=== PATIENT | female | born 1960 | race Asian ===

== ENCOUNTER 2018-10-24 15:55 | Inpatient (IN) | payer MEDICAID ==
[~2018-10-24] VITALS: Ht 156.2 cm; Wt 68.9 kg
[2018-10-24] MEDS ORDERED: SODIUM CHLORIDE 0.9% 1L BAG IV* STA (16:53)
[2018-10-24] MEDS ORDERED: ALBUTEROL 0.5% (NEB) 2.5 MG/0.5 ML AMP INH STA (16:55)
--- NOTE | 2018-10-24 16:56 | ERD ---
ER Documentation Chief Complaint Chief Complaint SOB x 3 days worse today - has R breast CA on chemotherapy HPI 58-year-old woman complains of 3 days of intermittent cough and fever, generalized weakness this morning. She has a history of right metastatic breast carcinoma status post right partial mastectomy and chemotherapy. She denies chest pain, no calf or leg swelling, no abdominal pain, no vomiting or diarrhea. ROS All systems reviewed and are negative except as per history of present illness. Allergies Allergies: Coded Allergies: No Known Allergy (Unverified , 10/24/18) PMhx/Soc Metastatic right breast carcinoma status post chemo and radiation therapy diagnosed in 2010, diabetes mellitus FmHx Family History: No diabetes Physical Exam Vitals Vital Signs Date Temp Pulse Resp B/P (MAP) Pulse Ox O2 O2 Flow FiO2 Time Delivery Rate 10/24/18 97.8 126 18 107/81 100 Nasal 2.0 18:33 (90) Cannula 10/24/18 3.0 17:48 10/24/18 120 30 98 Nasal 3.0 17:16 Cannula 10/24/18 99.8 126 21 165/97 96 15:59 (119) Physical Exam GENERAL: Well-developed, dyspneic, febrile HEENT: Moist mucous membranes, pink conjunctiva, no cervical spine tenderness or step-off deformities, no goiter, no jaundice or icterus, extraocular movements intact without pain. No submandibular induration, and no pharyngeal erythema NEURO: Alert and oriented 3, cranial nerves II through XII intact bilaterally, pupils equal round reactive to light, no focal deficits or facial asymmetry, sensation intact distally Strength 5/5 in upper and lower extremities bilaterally CARDIAC: Tachycardic and regular, no murmurs rubs or gallops LUNGS: Poor breath sounds bilaterally, crackles at the bases ABDOMEN: Soft nontender, no guarding, no rigidity, no rebound, no psoas sign no obturator sign. SKIN: Warm and dry to touch, no abrasions, contusions, or hematomas, no lacerations, no ecchymosis, no target lesions, and without ulcers EXTREMITIES: No clubbing cyanosis or edema, calves are bilaterally symmetrical, no Homans sign, no popliteal cord sign. Distal pulses equal and bilateral PSYCH: Normal affect without agitation or irritability Result Diagram: 10/24/18 1600 10/24/18 1600 Results 24 hrs Laboratory Tests Test 10/24/18 16:00 10/24/18 16:15 10/24/18 16:53 10/24/18 17:19 White Blood 6.6 10^3/ul Count Red Blood Count 3.21 10^6/ul Hemoglobin 12.0 g/dl Hematocrit 34.3 % Mean 106.9 fl Corpuscular Volume Mean 37.4 pg Corpuscular Hemoglobin Mean 35.0 g/dl Corpuscular Hemoglobin Conc ent Red Cell 15.1 % Distribution Width Platelet Count 48 10^3/UL Mean Platelet 11.7 fl Volume Immature 0.500 % Granulocytes % Neutrophils % % Lymphocytes % % Monocytes % % Eosinophils % % Basophils % % Nucleated Red 1.8 /100WBC Blood Cells % Immature 0.030 10^3/ul Granulocytes # Neutrophils # 10^3/ul Lymphocytes # 10^3/ul Monocytes # 10^3/ul Eosinophils # 10^3/ul Basophils # 10^3/ul Nucleated Red 10^3/ul Blood Cells # Pathologist YES Review (Hematol ogy) Prothrombin 15.3 Sec Time Prothrombin 1.2 Time Ratio INR 1.20 International Normalized Rati o Activated 75.4 Sec Partial Thrombo plast Time Sodium Level 138 mmol/L Potassium Level 4.0 mmol/L Chloride Level 103 mmol/L Carbon Dioxide 23 mmol/L Level Anion Gap 12 Blood Urea 21 mg/dl Nitrogen Creatinine 0.58 mg/dl Est Glomerular > 60 mL/min Filtrat Rate mL/min Glucose Level 120 mg/dl Calcium Level 8.7 mg/dl Total Bilirubin 1.9 mg/dl Direct 0.70 mg/dl Bilirubin Indirect 1.2 mg/dl Bilirubin Aspartate Amino 449 IU/L Transf (AST/SGO T) Alanine 183 IU/L Aminotransferas e (ALT/SGPT) Alkaline 467 IU/L Phosphatase Troponin I < 0.012 ng/ml C-Reactive 6.9 mg/dl Protein Total Protein 6.7 g/dl Albumin 2.8 g/dl Globulin 3.90 g/dl Albumin/Globuli 0.71 n Ratio Lipase 209 U/L Lactic Acid 3.5 mmol/L Level Blood Gas Blood arterial Specimen Source Arterial Blood 10/24/2018 5:22 Date Drawn :39 PM Arterial Blood 7.482 pH (Temp corrected ) Arterial Blood 29.4 mmhg pCO2 (Temp correct) Arterial Blood 155.6 mmHG pO2 (Temp corrected ) Arterial Blood 21.5 mmol/L HCO3 Arterial Blood -0.9 mmol/L Base Excess Arterial Blood 98.9 mmHG Oxygen Saturati on Jake Test ACCEPTAB Arterial Blood Left Radial Gas Puncture Site Arterial 0.9 % Blood Carboxyhe moglobin Arterial Blood 0.2 % Methemoglobin Blood Gas A-a 23.8 mmHg O2 Differential Oxyhemoglobin 97.8 % Percent Blood Gas 37.0 C Temperature Blood Gas 30 Actual Respiration Rat e Blood Gas NASAL CANNULA Modality FiO2 30.0 % Blood Gas OTF RT Notified Whom Blood Gas 10/24/2018 5:40 Notified Time :47 PM POC Venous 2.7 mmol/L Lactate Current Medications Medications Dose Sig/Rosibel Start Time Status Last (Trade) Ordered Route PRN Stop Time Admin Dose Reason Admin Sodium 2,000 ml BOLUS OVER 2 10/24/18 DC 10/24/18 Chloride HOURS STAT 16:53 17:35 (NS) IV* 10/24/18 17:02 Ibuprofen 600 mg ONCE ONCE 10/24/18 DC 10/24/18 (Motrin) PO 17:00 17:40 10/24/18 17:02 Ceftriaxone 50 ml @ ONCE ONCE 10/24/18 DC 10/24/18 Sodium 100 mls/hr IVPB 17:00 17:35 10/24/18 17:29 Albuterol 10 mg ONCE STAT 10/24/18 DC 10/24/18 (Proventil INH 16:55 17:16 0.5% (Neb)) 10/24/18 17:02 Procedures/MDM IV line was established patient was placed on video arcade manager rhythm strip revealed a sinus tachycardia at 120 bpm with upright P and T waves. Patient was febrile. Blood and urine cultures have been ordered results are pending I will follow-up. EKG performed, read by me revealed a sinus tachycardia at 121 bpm, normal axis, narrow QRS complex, no concerning ST elevations or depressions noted, motion artifact noted. I administered 2 L normal saline IV, ibuprofen 600 mg p.o., albuterol 10 mg via nebulizer for cough and complaints of shortness of breath, and ceftriaxone 1 g IV. I also administered azithromycin 500 mg IV x1 CBC was unremarkable, electrolytes revealed dehydration with a BUN/creatinine of 21/0.6, liver function tests revealed transaminitis, elevated alkaline phosphatase, and mild hyperbilirubinemia. Troponin was negative, influenza AB swabs were negative. CRP elevated at 6.9, lactic acid #1 3.5, lactic acid #2 2.7 1 view chest x-ray performed, read by me reveals bilateral pulmonary congestion and right pleural effusion with a parapneumonic infiltrate concerning for pneumonia. ABG was performed revealing a pH of 7.48, PCO2 29, PO2 160. Respiratory alkalosis Urine analysis is also been ordered results are pending I will follow-up. Patient has no complaints of abdominal pain and further imaging if indicated will be deferred to admitting team. Patient's infectious symptoms have not stabilized and the patient is at risk of rapid decompensation. The patient will be admitted for careful hydration, antibiotic therapy, and infectious source control. SEVERE SEPSIS CRITERIA: Infectious source: Pneumonia End organ damage indicated by: No SEPSIS MANAGEMENT Time of recognition of sepsis: Upon arrival. Time of recognition of severe sepsis: No severe sepsis at this time. Time of recognition of septic shock: No septic shock at this time. 3 HOUR BUNDLE Blood cultures x 2 before broad-spectrum antibiotics: Yes 30 ml/kg NS bolus completed Initial lactate 3.5 Repeat lactate 2.7 SEPTIC SHOCK ASSESSMENT: No lactic acid > 4.0 No persistent hypotension (SBP < 90 or 40 mmHg drop, MAP < 65) despite 30 mL/kg IV fluid bolus VOLUME REASSESSMENT FOR SEPTIC SHOCK: Reevaluation Time: 1830 Temp 99 F, pulse 100 bpm, respiratory rate 18 breaths/min, blood pressure 140/80 Heart tachycardic and regular Lungs bilateral crackles Skin warm & dry Cap Refill less than 2 seconds Peripheral pulses radially present PERSISTENT HYPOTENSION TREATMENT: Comfort care no Central line not Required Vasopressor started not required I considered further perfusion assessment with CVP measurement, SCVO2, bedside ultrasound volume assessment, passive leg raise, trial of further fluid bolus. And proceeded with 30 ml/kg fluid bolus of NSS, broad spectrum antibiotics, and admission. CRITICAL CARE: Critical care time 35 minutes, this was time separate from other billable procedures. Emergent fluid management while maintaining close respiratory support. Provision of immediate and broad-spectrum antibiotic therapy. Simultaneous assessment for possible sources in order to direct targeted therapy. Consideration for invasive and chemical support to prevent cardiopulmonary collapse. Critical care time is independent of procedures performed. Accepting Care Team: Current data and ongoing care discussed. Time: Time of admission Primary Provider: Hospitalist Consulting: Infectious disease and hematology oncology Outstanding Data: none Departure Diagnosis: Primary Impression: Metastatic breast carcinoma Additional Impressions: Dehydration Sepsis Sepsis type: sepsis due to unspecified organism Qualified Codes: A41.9 - Sepsis, unspecified organism Pneumonia Pneumonia type: due to unspecified organism Laterality: right Lung location: lower lobe of lung Qualified Codes: J18.1 - Lobar pneumonia, unspecified organism Condition: LIEN Hobbs MD Oct 24, 2018 16:56
[2018-10-24] MEDS ORDERED: IBUPROFEN 600 MG TAB PO ONE (17:00)
[2018-10-24] MEDS ORDERED: CEFTRIAXONE 1 GM/50 ML (PMX) 50 ML IVPB ONE (17:00)
[2018-10-24] MEDS ORDERED: AZITHROMYCIN 500MG/NS (PMX) 250 ML IVPB ONE (19:00)
[2018-10-24 19:56] VITALS: BP 104/68; PULSE 113; RESP 18
[2018-10-24 20:07] VITALS: PULSE 114
[2018-10-24 20:27] VITALS: Ht 156.2 cm; Wt 68.9 kg
[2018-10-24] MEDS: SOD CHLORIDE 0.9% 1,000 ML IV SCH (22:11)
--- NOTE | 2018-10-24 23:56 | HP ---
Date/Time of Note Date/Time of Note DATE: 10/24/18 TIME: 23:56 Assessment/Plan VTE Prophylaxis Pharmacological prophylaxis: heparin Lines/Catheters IV Catheter Type (from Nrs): port-a-cath Assessment/Plan Hospital Course 1. Sepsis, likely secondary to URI versus early developing pneumonia. UTI also possibility -IV antibiotic, IV fluid -UA, urine culture and blood culture -Trend lactate 2. 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 Oncology consult will be placed as nee ded 3. Abnormal LFTs -Obtain abdominal imaging to evaluate for metastasis as well as biliary abnor malities -Check hep panel Result Diagram: 10/24/18 1600 10/24/18 1600 Results 24hrs Laboratory Tests Test 10/24/18 16:00 10/24/18 16:15 10/24/18 16:53 10/24/18 17:19 White Blood 6.6 Count Red Blood Count 3.21 L Hemoglobin 12.0 Hematocrit 34.3 L Mean 106.9 H Corpuscular Volume Mean 37.4 H Corpuscular Hemoglobin Mean 35.0 Corpuscular Hemoglobin Conc ent Red Cell 15.1 H Distribution Width Platelet Count 48 L Mean Platelet 11.7 H Volume Immature 0.500 H Granulocytes % Neutrophils % Segmented 74 Neutrophils % (Manual) Lymphocytes % Lymphocytes % 10 L (Manual) Reactive 2 H Lymphocytes % (Manual) Monocytes % Monocytes % 14 H (Manual) Eosinophils % Basophils % Nucleated Red 1 H Blood Cells % Immature 0.030 Granulocytes # Neutrophils # Lymphocytes 0.6 L (Manual) Lymphocytes # Reactive 0.1 H Lymphocytes # Monocytes # Monocytes # 0.9 (Manual) Eosinophils # Basophils # Nucleated Red Blood Cells # Pathologist YES Review (Hematol ogy) Platelet SIG DECREASED Estimate Giant Platelets 7 H Polychromasia 1+ Poikilocytosis 1+ Anisocytosis 3+ Macrocytosis 3+ Prothrombin 15.3 H Time Prothrombin 1.2 Time Ratio INR 1.20 International Normalized Rati o Activated 75.4 *H Partial Thrombo plast Time Sodium Level 138 Potassium Level 4.0 Chloride Level 103 Carbon Dioxide 23 Level Anion Gap 12 Blood Urea 21 H Nitrogen Creatinine 0.58 Est Glomerular > 60 Filtrat Rate mL/min Glucose Level 120 Calcium Level 8.7 Total Bilirubin 1.9 H Direct 0.70 H Bilirubin Indirect 1.2 H Bilirubin Aspartate Amino 449 H Transf (AST/SGO T) Alanine 183 H Aminotransferas e (ALT/SGPT) Alkaline 467 H Phosphatase Troponin I < 0.012 C-Reactive 6.9 H Protein Total Protein 6.7 Albumin 2.8 L Globulin 3.90 H Albumin/Globuli 0.71 n Ratio Lipase 209 Lactic Acid 3.5 *H Level Blood Gas Blood Specimen arterial Source Arterial Blood 10/24/2018 5:2 Date Drawn 2:39 PM Arterial Blood 7.482 H pH (Temp corrected ) Arterial Blood 29.4 L pCO2 (Temp correct) Arterial Blood 155.6 H pO2 (Temp corrected ) Arterial Blood 21.5 L HCO3 Arterial Blood -0.9 Base Excess Arterial Blood 98.9 H Oxygen Saturati on Jake Test ACCEPTAB Arterial Blood Left Radial Gas Puncture Site Arterial 0.9 Blood Carboxyhe moglobin Arterial Blood 0.2 Methemoglobin Blood Gas A-a 23.8 O2 Differential Oxyhemoglobin 97.8 Percent Blood Gas 37.0 Temperature Blood Gas 30 Actual Respiration Rat e Blood Gas NASAL CANNULA Modality FiO2 30.0 Blood Gas OTF RT Notified Whom Blood Gas 10/24/2018 5:4 Notified Time 0:47 PM POC Venous 2.7 *H Lactate HPI/ROS Admit Date/Time Admit Date/Time Oct 24, 2018 at 17:53 Hx of Present Illness 58-year-old female with a history of right breast carcinoma status post mastect luiz, on chemo who presented to ER complaining of shortness of breath, cough and generalized weakness. Also reported subjective fever. She also complains of constipation. Cough has been dry for the most part. Denied nausea/vomiting, chest pain and abdominal pain. When presented to ER, she was tachycardic with a heart rate in the 120s. Initial temp 99.8. WBC 6.6. Initial lactic acid greater than 3. There is mild cardiomegaly and mild vascular congestion with the presence of small bibasilar opacities and small bilateral pleural effusions with the presence of lower lung superinfection not excluded in the setting of sepsis. After patient was admitted, she complains of inability to urinate even though she was having the urge for it. Bladder scan was done which showed about 300 cc of urine. A Velarde was placed, which later was removed per patient's request. PMH/Family/Social Past Medical History Medications Current Medications Sodium Chloride 1,000 ml @ 100 mls/hr Q10H IV Last administered on 10/24/18at 22:11; Admin Dose 100 MLS/HR; Start 10/24/18 at 20:30 Coded Allergies: No Known Allergy (Unverified , 10/24/18) Social History Smoking Status: Never smoker Exam/Review of Systems Vital Signs Vitals Vital Signs Date Temp Pulse Resp B/P (MAP) Pulse Ox O2 O2 Flow FiO2 Time Delivery Rate 10/24/18 114 20:07 10/24/18 98.7 18 104/68 100 Nasal 3.0 19:56 (80) Cannula Exam Exam Constitutional: other (no acute distress) Head: normocephalic Respiratory: other (slight decreased at bases) Cardiovascular: regular rate and rhythm Gastrointestinal: soft Extremities: normal pulses PMH/Family/Social Past Medical History Medical History: other (see hpi) Coded Allergies: No Known Drug Allergy (Verified Allergy, Unknown, 06/11/16) Past Surgical History Past Surgical Hx: other (see hpi) Family History Significant Family History: no pertinent family hx Social History Alcohol Use: other Smoking Status: Unknown if ever smoked Drug Use: other OSVALDO DAVIS MD Oct 24, 2018 23:56
[2018-10-25] VITALS (12 sets, daily range): BP systolic 99–139; BP diastolic 63–92; PULSE 98–120; RESP 18–20
[2018-10-25] MEDS ORDERED: NA PHOSPHATE/BIPHOS 133 ML ENEMA PR ONE (00:30)
[2018-10-25] MEDS ORDERED: ONDANSETRON 4 MG INJ IV PRN (00:30)
[2018-10-25] MEDS ORDERED: SOD CHLORIDE 0.9% 500 ML IV ONE (00:30)
[2018-10-25] MEDS ORDERED: HYDROCODONE/APAP (5/325) TAB PO PRN ×2 (00:30)
[2018-10-25] MEDS ORDERED: NACL 0.9% 3 ML SYG IV SCH (00:30)
[2018-10-25] MEDS ORDERED: NA PHOSPHATE/BIPHOS 133 ML ENEMA PR PRN (00:30)
[2018-10-25] MEDS ORDERED: ACETAMINOPHEN 325 MG TAB PO PRN (00:30)
--- NOTE | 2018-10-25 01:09 | NUR ---
Patient complained of having urge to urinate but cannot urinate. Bladder scan showed 290ml. Informed Dr. Leigh,received order to insert regalado, informed patient of order. Agree to be inserted. Patient tolerated procedure.
[2018-10-25] MEDS: SOD CHLORIDE 0.9% 1,000 ML IV SCH ×4 (06:30→20:58)
--- NOTE | 2018-10-25 07:35 | NUR ---
Patient a new admission, came around 19:24pm. Patient is a chemo patient, last chemo was 10/21/2018 at [facility]. Patient stated it's her first time in this hospital and she felt really week because of the Chemo and decided to stop it, she thinks it could be the new medication from chemo. Patient is awake, alert and oriented x 4. Non-ambulatory for now, patient is very weak. Noted no med-recon from ER. Asked the patient about her medications and stated to call her chemo doctor ( Vilma Sanabria) from [facility]. No c/o of pain. Placed call light within reach. Kept safe and comfortable.
[2018-10-25] MEDS ORDERED: HEPARIN 5,000 UNIT/1 ML VIAL SC SCH (09:00)
[2018-10-25] MEDS ORDERED: LEVOFLOXACIN 500MG/D5W (PMX) 100 ML IVPB SCH (09:00)
--- NOTE | 2018-10-25 15:55 | PN ---
Date/Time of Note Date/Time of Note DATE: 10/25/18 TIME: 15:52 Assessment/Plan VTE Prophylaxis Risk score (from [facility])>0 risk: 9 SCD applied (from [facility]): Yes SCD contraindicated: low risk/ambulating Pharmacological prophylaxis: LMWH Lines/Catheters IV Catheter Type (from [facility]): Port-A-Cath Reason Cath still needed: urinary retention Assessment/Plan Hospital Course Plan 1. Sirs rule out infectious etiology pneumonia, stable observe 2. Cough pleurisy likely due to bronchitis. Chest x-ray appears normal. Possibly due to pleural effusion. 3. Metastatic breast cancer, status post mastectomy. Last chemo I believe last week at [facility]. Restart once performance status has improved; needs advanced care planning reevaluated 4. Liver metastases 5. Bone metastases? 6. Failure to thrive may need sniff 7. Constipation 8. Anemia 9. Thrombocytopenia S: Sharp atypical substernal/ epigastric pain w nonproductive cough. Nonexertional. No n/v diaphoresis. Positive flu shot. No recent travel ill contacts. Occasional edema. O: Vital signs stable no tachypnea, low-grade fever noted sinus rhythm poor R progression through anteroseptal leads Physical exam No pallor JVD adenopathy icterus Regular no murmur rub gallop Clear nontender no rash: Chest port C/d/I Bowel sounds present nontender no RrG No edema/Homans Result Diagram: 10/25/18 0500 10/25/18 0500 Results 24hrs Laboratory Tests Test 10/24/18 16:00 10/24/18 16:15 10/24/18 16:53 10/24/18 17:19 White Blood 6.6 Count Red Blood Count 3.21 L Hemoglobin 12.0 Hematocrit 34.3 L Mean 106.9 H Corpuscular Volume Mean 37.4 H Corpuscular Hemoglobin Mean 35.0 Corpuscular Hemoglobin Conc ent Red Cell 15.1 H Distribution Width Platelet Count 48 L Mean Platelet 11.7 H Volume Immature 0.500 H Granulocytes % Neutrophils % Segmented 74 Neutrophils % (Manual) Lymphocytes % Lymphocytes % 10 L (Manual) Reactive 2 H Lymphocytes % (Manual) Monocytes % Monocytes % 14 H (Manual) Eosinophils % Basophils % Nucleated Red 1 H Blood Cells % Immature 0.030 Granulocytes # Neutrophils # Lymphocytes 0.6 L (Manual) Lymphocytes # Reactive 0.1 H Lymphocytes # Monocytes # Monocytes # 0.9 (Manual) Eosinophils # Basophils # Nucleated Red Blood Cells # Pathologist YES Review (Hematol ogy) Platelet SIG DECREASED Estimate Giant Platelets 7 H Polychromasia 1+ Poikilocytosis 1+ Anisocytosis 3+ Macrocytosis 3+ Prothrombin 15.3 H Time Prothrombin 1.2 Time Ratio INR 1.20 International Normalized Rati o Activated 75.4 *H Partial Thrombo plast Time Sodium Level 138 Potassium Level 4.0 Chloride Level 103 Carbon Dioxide 23 Level Anion Gap 12 Blood Urea 21 H Nitrogen Creatinine 0.58 Est Glomerular > 60 Filtrat Rate mL/min Glucose Level 120 Calcium Level 8.7 Total Bilirubin 1.9 H Direct 0.70 H Bilirubin Indirect 1.2 H Bilirubin Aspartate Amino 449 H Transf (AST/SGO T) Alanine 183 H Aminotransferas e (ALT/SGPT) Alkaline 467 H Phosphatase Troponin I < 0.012 C-Reactive 6.9 H Protein Total Protein 6.7 Albumin 2.8 L Globulin 3.90 H Albumin/Globuli 0.71 n Ratio Lipase 209 Lactic Acid 3.5 *H Level Blood Gas Blood Specimen arterial Source Arterial Blood 10/24/2018 5:2 Date Drawn 2:39 PM Arterial Blood 7.482 H pH (Temp corrected ) Arterial Blood 29.4 L pCO2 (Temp correct) Arterial Blood 155.6 H pO2 (Temp corrected ) Arterial Blood 21.5 L HCO3 Arterial Blood -0.9 Base Excess Arterial Blood 98.9 H Oxygen Saturati on Jake Test ACCEPTAB Arterial Blood Left Radial Gas Puncture Site Arterial 0.9 Blood Carboxyhe moglobin Arterial Blood 0.2 Methemoglobin Blood Gas A-a 23.8 O2 Differential Oxyhemoglobin 97.8 Percent Blood Gas 37.0 Temperature Blood Gas 30 Actual Respiration Rat e Blood Gas NASAL CANNULA Modality FiO2 30.0 Blood Gas OTF RT Notified Whom Blood Gas 10/24/2018 5:4 Notified Time 0:47 PM POC Venous 2.7 *H Lactate Test 10/25/18 00:40 10/25/18 01:10 10/25/18 05:00 10/25/18 08:10 Lactic Acid 2.6 *H Level Urine Color CAIT Urine Clarity SLIGHTLY CLOUD Y A Urine pH 5.0 Urine Specific 1.025 [place] Urine Ketones NEGATIVE Urine Nitrite POSITIVE A Urine Bilirubin 1+ H Urine 2+ H Urobilinogen Urine Leukocyte NEGATIVE Esterase Urine 2 Microscopic RBC Urine 7 H Microscopic WBC Urine Bacteria MANY A Urine Mucus MANY A Urine NEGATIVE Hemoglobin Urine Glucose NEGATIVE Urine Total 1+ H Protein White Blood 7.2 Count Red Blood Count 2.70 L Hemoglobin 10.3 L Hematocrit 29.2 L Mean 108.1 H Corpuscular Volume Mean 38.1 H Corpuscular Hemoglobin Mean 35.3 Corpuscular Hemoglobin Conc ent Red Cell 15.5 H Distribution Width Platelet Count 42 L Mean Platelet 11.0 H Volume Immature 0.600 H Granulocytes % Neutrophils % 64.1 Lymphocytes % 20.6 Monocytes % 13.7 H Eosinophils % 0.6 Basophils % 0.4 Nucleated Red 1.8 H Blood Cells % Immature 0.040 H Granulocytes # Neutrophils # 4.6 Lymphocytes # 1.5 Monocytes # 1.0 H Eosinophils # 0.0 Basophils # 0.0 Nucleated Red 0.1 H Blood Cells # Sodium Level 140 Potassium Level 3.9 Chloride Level 107 Carbon Dioxide 24 Level Anion Gap 9 Blood Urea 18 Nitrogen Creatinine 0.70 Est Glomerular > 60 Filtrat Rate mL/min Glucose Level 112 Calcium Level 7.7 L Magnesium Level 1.9 Total Bilirubin 1.5 H Direct 0.70 H Bilirubin Indirect 0.8 Bilirubin Aspartate Amino 403 H Transf (AST/SGO T) Alanine 168 H Aminotransferas e (ALT/SGPT) Alkaline 394 H Phosphatase Total Protein 5.6 #L Albumin 2.3 L Globulin 3.30 H Albumin/Globuli 0.69 n Ratio Triglycerides 99 Level Cholesterol 86 L Level LDL 50 Cholesterol, Calculated HDL Cholesterol 16 L Cholesterol/HDL 5.3 Ratio Hepatitis B NEGATIVE Surface Antigen Hepatitis B POSITIVE H Surface Antibody Hepatitis C NEGATIVE Antibody Exam/Review of Systems Vital Signs Vitals Vital Signs Date Temp Pulse Resp B/P (MAP) Pulse Ox O2 O2 Flow FiO2 Time Delivery Rate 10/25/18 97.7 107 20 139/86 100 15:21 (103) 10/25/18 Nasal 08:00 Cannula 10/24/18 3.0 20:00 Medications Medications Current Medications Sodium Chloride 1,000 ml @ 100 mls/hr Q10H IV Last administered on 10/25/18at 08:53; Admin Dose 100 MLS/HR; Start 10/24/18 at 20:30 IV Flush (NS 3 ml) 3 ml PER PROTOCOL IV ; Start 10/25/18 at 00:30 Ondansetron HCl (Zofran Inj) 4 mg Q6H PRN IV NAUSEA AND/OR VOMITING; Start 10/25/18 at 00:30 Acetaminophen (Tylenol Tab) 650 mg Q6H PRN PO PAIN LEVEL 1-3 OR FEVER; Start 10/25/18 at 00:30 Acetaminophen/ Hydrocodone Bitart ([place] (5/325)) 1 tab Q6H PRN PO PAIN LEVEL 4-6; Start 10/25/18 at 00:30 Acetaminophen/ Hydrocodone Bitart ([place] (5/325)) 2 tab Q6H PRN PO PAIN LEVEL 7-10; Start 10/25/18 at 00:30 Heparin Sodium (Porcine) (Heparin (5000 Units/1ml)) 5,000 unit Q12 SC Last administered on 10/25/18at 08:53; Admin Dose 5,000 UNIT; Start 10/25/18 at 09:00 Levofloxacin/ Dextrose 100 ml @ 100 mls/hr DAILY IVPB Last administered on 10/25/18at 08:54; Admin Dose 100 MLS/HR; Start 10/25/18 at 09:00 Sodium Biphosphate/ Sodium Phosphate (Fleet Enema) 133 ml DAILY PRN VT CONSTIPATION; Start 10/25/18 at 00:30 JORDAN ISAAC MD Oct 25, 2018 15:55
[2018-10-25] MEDS ORDERED: BISACODYL 10 MG SUPP PR PRN (16:00)
[2018-10-25] MEDS ORDERED: MINERAL OIL 133 ML ENEMA PR PRN (16:00)
[2018-10-25] MEDS ORDERED: BISACODYL (EC) 5 MG TAB PO PRN (16:00)
[2018-10-25] MEDS ORDERED: ALBUTEROL HFA 8 GM INHALER INH PRN (16:00)
[2018-10-25] MEDS ORDERED: GUAIFENESIN/DM 5ML CUP PO PRN (16:00)
[2018-10-25] MEDS: MAGNESIUM HYDROXIDE 30ML CUP PO SCH ×2 (17:20→20:57)
[2018-10-25] MEDS: POLYETHYLENE GLYCOL 17 GM PACKET PO SCH ×2 (17:20→19:53)
--- NOTE | 2018-10-25 18:44 | NUR ---
EOSS: Stable and No acute change noted during the shift, continue to monitor & will endorse to PM shift.
--- NOTE | 2018-10-25 20:39 | NUR ---
According to pt she refused the Milk of Magnesium scheduled at 1600. Pt at 1st requested medication to stop her from having loss bowel. Explained to pt that the reason she is having the diarrhea is that she had MOM, fleet edema and Miralax. Pt verbalize understanding and agree to take scheduled MoM at 2100. Pt refused Miralax.
--- NOTE | 2018-10-25 20:52 | NUR ---
SecurityIsabel came and pick patient belonging. Pt send to the safe a bag with credit cards. personals IDS and $ 25. Pt. originally started that she possibly may have $300 with her, but only $ 25 found on her bag. Counted many in front of the patient and Isabel isabel. Pt. will call nephew and found out if he took the money
[2018-10-26] VITALS (11 sets, daily range): BP systolic 117–140; BP diastolic 77–92; PULSE 75–120; RESP 18–20
[2018-10-26] MEDS: LEVOFLOXACIN 500 MG TAB PO SCH (05:40)
--- NOTE | 2018-10-26 06:53 | NUR ---
EOSS Pt AAO x4. Gave ventolin for SOB of breath. After 30 min pt was asking for breathing. Pt saturating 98%. Notified Dr Leigh of c/o SOB, ut HR is 112-116. Awaiting for DR Leigh respond. Went back to patients room and she said that she didn't need a brething tx. she just wanted to know if she can take the INH home. Explained to pt if doctor orders it he will give her a prescription. She also, order a Robitussin, but then refused med. Pt denied pain , sob, anxiety of any discomfort at this time.
[2018-10-26] MEDS: POLYETHYLENE GLYCOL 17 GM PACKET PO SCH ×2 (09:00→21:00)
[2018-10-26] MEDS: MAGNESIUM HYDROXIDE 30ML CUP PO SCH ×2 (09:00→21:00)
[2018-10-26] MEDS ORDERED: HYDROCODONE/APAP (10/325) TAB PO PRN (13:30)
--- NOTE | 2018-10-26 13:56 | PN ---
Date/Time of Note Date/Time of Note DATE: 10/26/18 TIME: 13:51 Assessment/Plan VTE Prophylaxis Risk score (from Ns)>0 risk: 9 SCD applied (from Ns): Yes SCD contraindicated: low risk/ambulating Pharmacological prophylaxis: LMWH Lines/Catheters IV C[facility]ter Type [facility]from [facility] Port-A-Cath Assessment/Plan Hospital Course A/P 1. Sirs rule out infectious etiology/ pneumonia, stable observe. Likely due to symptomatic pleural effusion 2. Cough pleurisy likely due to pleural effusion. CT results noted. 3. Metastatic breast ca, sp mastectomy. Last chemo I believe last wk at [facility]. Restart if performance status has improved; needs advanced care planning reevaluated. At this time she may be be considering palliative hospice. I asked her to at least get an opinion from her oncologist along with hospice service. 4. Liver metastases 5. Bone metastases 6. Failure to thrive may need snf vs home with hospice 7. Constipation 8. Anemia, appears asymptomatic 9. Thrombocytopenia 10. Pleural effusion likely metastatic disease or third spacing. Once stable cont chemo vs hospice. No fever no need to tap. 11. Sinus tach possibly due to pleural effusion. No evidence of DVT. S: 10/25 Sharp atypical substernal/ epigastric pain w nonproductive cough. Nonexertional. No n/v diaphoresis. Positive flu shot. No recent travel ill contacts. Occasional edema. 1/2: Less pain. Wishes to consider/avoid chemotherapy O: Vss no tachypnea, st Physical exam No pallor JVD icterus Reg no murmur rub gallop Clear, nontender no rash: Chest port C/d/I Bs present nt nd no rash no RrG No edema/Homans Result Diagram: 10/26/18 0454 10/26/18 0454 Results 24hrs Laboratory Tests Test 10/26/18 04:54 White Blood Count 6.1 Red Blood Count 2.97 L Hemoglobin 11.2 L Hematocrit 32.5 L Mean Corpuscular Volume 109.4 H Mean Corpuscular Hemoglobin 37.7 H Mean Corpuscular Hemoglobin Concent 34.5 Red Cell Distribution Width 15.9 H Platelet Count 47 L Mean Platelet Volume 10.9 H Immature Granulocytes % 0.700 H Neutrophils % 67.4 Lymphocytes % 15.2 Monocytes % 15.5 H Eosinophils % 0.7 Basophils % 0.5 Nucleated Red Blood Cells % 3.1 H Immature Granulocytes # 0.040 H Neutrophils # 4.1 Lymphocytes # 0.9 Monocytes # 1.0 H Eosinophils # 0.0 Basophils # 0.0 Nucleated Red Blood Cells # 0.2 H Prothrombin Time 15.3 H Prothrombin Time Ratio 1.2 INR International Normalized Ratio 1.20 Sodium Level 142 Potassium Level 3.8 Chloride Level 111 H Carbon Dioxide Level 22 Anion Gap 9 Blood Urea Nitrogen 13 Creatinine 0.54 Est Glomerular Filtrat Rate mL/min > 60 Glucose Level 120 Hemoglobin A1c 5.1 Calcium Level 7.7 L Phosphorus Level 2.5 Magnesium Level 2.0 Total Bilirubin 2.0 H Direct Bilirubin 1.20 #H Indirect Bilirubin 0.8 Aspartate Amino Transf (AST/SGOT) 506 H Alanine Aminotransferase (ALT/SGPT) 188 H Alkaline Phosphatase 470 H Troponin I < 0.012 Total Protein 5.8 L Albumin 2.2 L Globulin 3.60 H Albumin/Globulin Ratio 0.61 Thyroid Stimulating Hormone (TSH) 5.510 H Exam/Review of Systems Vital Signs Vitals Vital Signs Date Temp Pulse Resp B/P (MAP) Pulse Ox O2 O2 Flow FiO2 Time Delivery Rate 10/26/18 108 12:00 10/26/18 98.1 18 140/92 99 Nasal 11:15 (108) Cannula 10/26/18 3.0 08:01 Intake and Output 10/25/18 10/25/18 10/26/18 1515:00 23:00 07:00 IntakeIntake Total 500 ml 1300 ml 200 ml OutputOutput Total 300 ml 400 ml 600 ml BalanceBalance 200 ml 900 ml -400 ml Medications Medications Current Medications IV Flush (NS 3 ml) 3 ml PER PROTOCOL IV ; Start 10/25/18 at 00:30 Ondansetron HCl (Zofran Inj) 4 mg Q6H PRN IV NAUSEA AND/OR VOMITING; Start 10/25/18 at 00:30 Acetaminophen (Tylenol Tab) 650 mg Q6H PRN PO PAIN LEVEL 1-3 OR FEVER; Start 10/25/18 at 00:30 Heparin Sodium (Porcine) (Heparin (5000 Units/1ml)) 5,000 unit Q12 SC Last administered on 10/25/18at 08:53; Admin Dose 5,000 UNIT; Start 10/25/18 at 09:00; Status Hold Sodium Biphosphate/ Sodium Phosphate (Fleet Enema) 133 ml DAILY PRN [place] CONSTIPATION; Start 10/25/18 at 00:30 Levofloxacin (Levaquin) 500 mg DAILY@06 PO Last administered on 10/26/18at 05:40; Admin Dose 500 MG; Start 10/26/18 at 06:00 Albuterol (Ventolin Hfa) 2 puff Q4H RESP THERAPY PRN INH SHORTNESS OF BREATH Last administered on 10/26/18at 05:59; Admin Dose 2 PUFF; Start 10/25/18 at 16:00 Guaifenesin/ Dextromethorphan (Robitussin Dm Liquid Cup) 10 ml Q4H PRN PO COUGH; Start 10/25/18 at 16:00 Magnesium Hydroxide (Milk Of Mag) 30 ml BID PO Last administered on 10/25/18at 20:57; Admin Dose 30 ML; Start 10/25/18 at 16:00 Polyethylene Glycol (Miralax) 17 gm BID PO Last administered on 10/25/18at 17:20; Admin Dose 17 GM; Start 10/25/18 at 16:00 Bisacodyl (Dulcolax) 10 mg DAILY PRN PO CONSTIPATION; Start 10/25/18 at 16:00 Bisacodyl (Dulcolax Supp) 10 mg Q48H PRN [place] CONSTIPATION; Start 10/25/18 at 16:00 Acetaminophen/ Hydrocodone Bitart ([place] (10/325)) 1 tab Q4H PRN PO MODERATE PAIN LEVEL 4-6; Start 10/26/18 at 13:30 Furosemide (Lasix) 40 mg BID DIURETICS IV ; Start 10/26/18 at 13:30 Levalbuterol (Xopenex Neb) 0.63 mg Q4H RESP THERAPY PRN HHN SHORTNESS OF BREATH; Start 10/26/18 at 14:00 JORDAN ISAAC MD Oct 26, 2018 13:56
--- NOTE | 2018-10-26 14:17 | RADRPT ---
Echocardiogram Report Patient Name: KAVEH LEONARDO Gender: Female Date: 1960 Study Date: 26-Oct-2018 Modeling Agency Manager: Sam Ceja [facility] Location: [id number] Ref. Physician: JORDAN ISAAC Quality: Adequate Procedures: Transthoracic echocardiogram with complete 2D, M-Mode, and doppler examination. Indications: Abnormal EKG. 2D/M Mode Doppler Measurement Value Normal Ranges Measurement Value Normal Ranges LVIDd 2D 3.7 3.5 - 5.6 cm AV Peak Bobby 1.9 m/sec LVIDs 2D 2.6 2.1 - 4.1 cm AV Peak PG 14.0 mmHg LVPWd 2D 1.1 0.6 - 1.1 cm LVOT Peak Bobby 1.1 m/sec IVSd 2D 1.3 0.6 - 1.1 cm LVOT Peak PG 5.0 mmHg AoR Diam 2D 2.6 2.0 - 3.7 cm MV E Peak Bobby 0.7 m/sec LA/Ao 2D 1 0 - 1 MV A Peak Bobby 1.1 m/sec LA Dimen 2D 2.9 2.3 - 4.0 cm MV E/A 0.7 MV Decel Time 144 msec Lat E` Bobby 0.1 m/sec Lateral E/E` 8.1 MV E/A 0.7 TR Peak Bobby 3.7 m/sec TR Peak PG 54.0 mmHg RVSP 57.0 mmHg RA Pressure 3.0 Findings Left Ventricle: Normal left ventricular systolic function. Normal left ventricular cavity size. Mild concentric left ventricular hypertrophy. Ejection fraction is visually estimated at 6065 %. Right Ventricle: Normal right ventricular size. Normal right ventricular systolic function. Left Atrium: The left atrium is normal in size. Right Atrium: The right atrium is normal in size. Mitral Valve: Normal appearance and function of the mitral valve with trace physiologic regurgitation. Aortic Valve: No significant aortic stenosis or insufficiency. Non coronary cusp appears moderately calcified. Tricuspid Valve: Normal appearance of the tricuspid valve. Estimated peak PA systolic pressure 57 mmHg. There is mild tricuspid regurgitation. Pulmonic Valve: Normal pulmonic valve appearance. Pericardium: Normal pericardium with no significant pericardial effusion. Aorta: Normal aortic root. IVC: Normal size and normal respiratory collapse consistent with normal right atrial pressure. Conclusions Normal left ventricular systolic function. Normal left ventricular cavity size. Mild concentric left ventricular hypertrophy. Ejection fraction is visually estimated at 60-65 %. Normal appearance and function of the mitral valve with trace physiologic regurgitation. Normal appearance of the tricuspid valve. Estimated peak PA systolic pressure 57 mmHg. There is mild tricuspid regurgitation. Electronically Signed By: Sean Schaeffer 26-Oct-2018 14:16:07 -0800 Patient Name: KAVEH LEONARDO Study Date: 26-Oct-2018 [id number]
[2018-10-26] MEDS: FUROSEMIDE 40 MG INJ IV SCH ×2 (15:34→20:00)
--- NOTE | 2018-10-26 16:10 | NUR ---
SW: CONSULTATION SW was consulted by Dr. Acuna to meet with patient regarding hospice. MD states he spoke with patient, and she is receptive to hospice. SW met with this 58-year-old Persian speaking female and her friends at bedside. Patient states she lives [place] alone at [id number], [place] [address]. She states that she wants to go home with hospice, but states that she thinks she needs more support at home. States that she lives with roommates, and has nobody at home that can help take care of her. SW provided resources for IHSS and educated patient that it takes several months for IHSS to be in effect. SW also provided resources for Medicare, per patient's request. TYLER provided patient with a list of hospice agencies, and she stated she plans to look through the list and will call this poem writer after she picked a hospice agency. SW provided patient with this writers contact information. Patient declined SNF placement. States that she can not go to [facility] either due to no income. She will review hospice list and SW will f/u. All other questions/ concerns denied. SW remains available as needd.
--- NOTE | 2018-10-26 16:26 | NUR ---
cm note received order for home health pt is medical fs, cm is working at finding home health. none at this time.
[2018-10-26] MEDS: LEVALBUTEROL (NEB) 0.63 MG/3 ML AMP HHN PRN ×2 (16:58→22:38)
--- NOTE | 2018-10-26 20:54 | NUR ---
Notified Dr Leigh about pt having sustained HR of 120. No s/s of distress, pain or discomfort. Dr Leigh asked if pt has poor appetite and if she has edema. Reported to him that pt has poor appetite and ptting edema 1 plus on all 4 extremities
--- NOTE | 2018-10-26 20:59 | NUR ---
Clarified with DR Leigh if he wanted lasix to be held. Per Dr Leigh hold lasix tonight.
[2018-10-26] MEDS ORDERED: ALBUMIN HUMAN 25% 100 ML IV ONE (21:00)
[2018-10-27] VITALS (10 sets, daily range): BP systolic 116–130; BP diastolic 80–81; PULSE 93–115; RESP 18–20
[2018-10-27] MEDS: LEVOFLOXACIN 500 MG TAB PO SCH (05:13)
--- NOTE | 2018-10-27 05:15 | NUR ---
Asked DR Ricardo if he wants to hold morning lasix. Per Reese to have morning MD make the decision. Will endorsed to AM nurse
[2018-10-27] MEDS: FUROSEMIDE 40 MG INJ IV SCH ×2 (06:00→17:52)
--- NOTE | 2018-10-27 06:35 | NUR ---
EOSS Pt. AAO x4. No s/s of respiratory distress, pain or discomfort at this time. No acute changes
[2018-10-27] MEDS: MAGNESIUM HYDROXIDE 30ML CUP PO SCH (09:00)
[2018-10-27] MEDS: POLYETHYLENE GLYCOL 17 GM PACKET PO SCH (09:00)
--- NOTE | 2018-10-27 12:29 | PDOCDIS ---
Discharge Instructions CONDITION [id number] Patient Condition: [id number] Stable HOME CARE INSTRUCTIONS: [id number] Special Diet: [id number] regular diet ACTIVITY: [id number] Activity Restrictions: [id number] Slowly Increase Activity Do not Drive FOLLOW UP/APPOINTMENTS Follow-up Plan appt Oncology & primary 1wk Hospice Consult/ referral done JORDAN ISAAC MD Oct 27, 2018 12:29
[2018-10-27] MEDS ORDERED: ACET325T33 PO (12:33)
[2018-10-27] MEDS ORDERED: GUAI120S26 PO (12:33)
[2018-10-27] MEDS ORDERED: POLY17PO6 PO (12:33)
[2018-10-27] MEDS ORDERED: LEVO500T48 PO (12:33)
[2018-10-27] MEDS ORDERED: FURO40TA4 PO (12:33)
[2018-10-27] MEDS ORDERED: ALBU18HF INH (12:33)
--- NOTE | 2018-10-27 12:45 | DS ---
Date/Time of Note Date/Time of Note DATE: 10/27/18 TIME: 12:36 Discharge Summary Admission/Discharge Info Admit Date/Time Oct 24, 2018 at 17:53 Discharge Date/Time Patient Condition: Fair Procedures Chest x-ray IMPRESSION: There is mild cardiomegaly and mild vascular congestion with the presence of small bibasilar opacities and small bilateral pleural effusions. The presence of lower lung superinfection is not excluded in the setting of sepsis. Left chest port terminates in the SVC. .Sandra Cruz MD, MD 2D echo Normal left ventricular systolic function. Normal left ventricular cavity size. Mild concentric left ventricular hypertrophy. Ejection fraction is visually estimated at 60-65 %. Normal appearance and function of the mitral valve with trace physiologic regurgitation. Normal appearance of the tricuspid valve. Estimated peak PA systolic pressure 57 mmHg. There is mild tricuspid regurgitation. -Electronically Signed By: Sean Schaeffer 26-Oct-2018 14:16:07 -0800 CT abdomen no contrast IMPRESSION: 1. Multiple liver lesions compatible with metastatic disease. 2. Multiple sclerotic lesions of the visualized bones compatible with metastatic disease. 3. Moderate bilateral pleural effusions with adjacent atelectasis or infiltrate. Small pericardial effusion. 4. Cholelithiasis. 5. Note that the pelvis was not included in this exam. Also, evaluation for metastases is limited without IV contrast. Willam Arguello, Physician Date Abdominal ultrasound IMPRESSION: 1. Multiple hypoechoic lesions of the liver concerning for metastatic disease. Correlate with subsequent CT abdomen pelvis exam. 2. Cholelithiasis. Gallbladder wall thickening may be related to liver disease and generalized ascites. However, acute cholecystitis cannot be excluded. If clinically indicated, this may be further evaluated with nuclear medicine HIDA scan. 3. Small volume ascites. Bilateral pleural effusions are present. 4. A 1.6 cm hyperechoic lesion in the upper pole right kidney may represent a small angiomyolipoma versus nonobstructing calcification. No hydronephrosis. Willam Arguello, Physician Hx of Present Illness 58-year-old female with metastatic breast cancer admitted for shortness of breath Hospital Course Evaluated for Sirs/ shortness of breath. Likely due to symptomatic pleural effusion. She received a course of antibiotics. She is likely third spacing from hypoalbuminemia and malignancy or direectly from cancer/metastatic disease itself. The treatment ideally of which is chemotherapy. Patient was given the option of continuing chemotherapy, however she is also considering palliative options as well. I asked her to speak with her primary and her oncologist to go through all options. But in the meantime I recommended she have a conversation with hospice to learn the treatment/philosophy encompasses. Patient is presently stable and fit for discharge. Will arrange for home health safety. She wants to visit the [facility]. I said that that would not be ideal if she does not have any energy and is not feeling well. A/P 1. Sirs rule out infectious etiology/ pneumonia, stable observe/ finish levaquin. Likely due to symptomatic pleural effusion 2. Cough pleurisy likely due to pleural effusion. CT results noted. 3. Metastatic breast ca, sp mastectomy. Last chemo at [facility]. Restart if performance status has improved; needs advanced care planning reevaluated. At this time she may be considering hospice. Pending opinion from her oncologist along with Hospice service. 4. Liver metastases 5. Bone metastases 6. Failure to thrive, home with hospice referral 7. Constipation 8. Anemia, appears asymptomatic 9. Thrombocytopenia 10. Pleural effusion likely metastatic disease or third spacing. Once stable cont chemo vs hospice. No fever no need to tap. 11. Sinus tach possibly due to pleural effusion. No evidence of DVT. S: 1/ Sharp atypical substernal/ epigastric pain w nonproductive cough. Nonexertional. No n/v diaphoresis. Positive flu shot. No recent travel ill contacts. Occasional edema. 1/2: Less pain. Wishes to consider/avoid chemotherapy 1/3: Seen by social service. Consult appreciated. Patient presently wants to go home. O: Vss no tachypnea, st Physical exam No pallor JVD icterus Reg no murmur rub gallop Clear, nontender no rash: Chest port C/d/I Bs present nt nd no rash no RrG No edema/Homans Home Meds Active Scripts Furosemide* (Furosemide*) 40 Mg Tablet, 40 MG PO BID for 7 Days, #15 TAB Prov:JORDAN ISAAC MD 10/27/18 Polyethylene Glycol* (Miralax*) 17 Gm Powd.pack, 17 GM PO BID for 7 Days, #10 2 Refills Prov:JORDAN ISAAC MD 10/27/18 [id number]-Bionvgbvmq Hb* (Guaifenesin* DM Syrup) 120 Ml Syrup, 10 ML PO Q4H PRN for COUGH for 1 Day Prov:JORDAN ISAAC MD 10/27/18 Acetaminophen* (Tylenol*) 325 Mg Tablet, 650 MG PO Q6H PRN for PAIN LEVEL 1-3 OR FEVER for 1 Day, TAB Prov:JORDAN ISAAC MD 10/27/18 Albuterol Sulfate* (Ventolin HFA*) 18 Gm Hfa.aer.ad, 2 PUFF INH Q4H RESP THERAPY PRN for SHORTNESS OF BREATH for 7 Days, #1 2 Refills Prov:JORDAN ISAAC MD 10/27/18 Levofloxacin* (Levaquin*) 500 Mg Tablet, 500 MG PO DAILY@06 for 3 Days, #4 TAB Prov:JORDAN ISAAC MD 10/27/18 Follow-up Plan appt Oncology & primary 1wk Hospice Consult/ referral done Primary Care Provider Not On Staff Doctor Time spent on discharge: > 30 minutes Pending Labs Laboratory Tests Test 10/27/18 05:02 White Blood Count 6.9 10^3/ul (4.8-10.8) Red Blood Count 2.78 10^6/ul (4.20-5.40) Hemoglobin 10.8 g/dl (12.0-16.0) Hematocrit 30.6 % (37.0-47.0) Mean Corpuscular Volume 110.1 fl (82.0-101.0) Mean Corpuscular Hemoglobin 38.8 pg (29.0-33.0) Mean Corpuscular Hemoglobin Concent 35.3 g/dl (32.0-37.0) Red Cell Distribution Width 16.3 % (11.5-14.5) Platelet Count 56 10^3/UL (140-415) Mean Platelet Volume 12.6 fl (7.4-10.4) Immature Granulocytes % 0.400 % (0.001-0.429) Neutrophils % 65.0 % (39.0-77.0) Lymphocytes % 17.7 % (15.0-51.0) Monocytes % 15.5 % (0.0-11.0) Eosinophils % 0.7 % (0.0-7.0) Basophils % 0.7 % (0.0-2.0) Nucleated Red Blood Cells % 4.2 /100WBC (0.0-0.0) Immature Granulocytes # 0.030 10^3/ul (0.0-0.031) Neutrophils # 4.5 10^3/ul (1.6-7.5) Lymphocytes # 1.2 10^3/ul (0.8-2.9) Monocytes # 1.1 10^3/ul (0.3-0.9) Eosinophils # 0.1 10^3/ul (0.0-0.5) Basophils # 0.1 10^3/ul (0.0-0.1) Nucleated Red Blood Cells # 0.3 10^3/ul (0.0-0.0) Sodium Level 141 mmol/L (135-144) Potassium Level 3.4 mmol/L (3.5-5.1) Chloride Level 110 mmol/L (97-110) Carbon Dioxide Level 24 mmol/L (21-31) Anion Gap 7 (5-13) Blood Urea Nitrogen 14 mg/dl (7-20) Creatinine 0.50 mg/dl (0.44-1.00) Est Glomerular Filtrat Rate mL/min > 60 mL/min (>60) Glucose Level 102 mg/dl (70-220) Calcium Level 7.9 mg/dl (8.4-10.2) Magnesium Level 2.0 mg/dl (1.7-2.5) JORDAN ISAAC MD Oct 27, 2018 12:45
--- NOTE | 2018-10-27 16:00 | NUR ---
SW: CANCER SUPPORT SW met with this patient again at bedside, per patient's request. Patient inquired to know what the difference is between hospice, HH and IHSS. SW provided psychoeducation on the difference between above services. Patient states she is not interested in hospice yet, but states that she will follow up with her PMD and will reconsider hospice at that time. However, patient did request resources for cancer support, such as: financial assistance to pay rent, food resources, caregiver resources, as well as financial assistance to pay for flight to go to [facility] to be with her family. SW contacted [employer] and spoke with Elvia ([phone]). Elvia provided several resources to provide to patient, includin. to be [place] ([phone]/ [phone])- SW called and left a VMM requesting call back. According to their details information, they usually provide flight assistance for persons that are going for medical treatment, and in certain states only. No out of country was listed. However, according to Elvia, patient can call to request a compassionate flight, but it is not certain that they can provide it. 2. [facility] ([phone])- SW called left VMM requesting call back 3. [facility] ([phone])- SW called left VMM requesting call back 4. [facility] (phone: [phone]). SW contacted them, and was provided with the following address in which patient can go to get free food: [place] location: [address] [place] [address] ([phone]). 5. [employer] ([phone]) 6. [employer] ([phone]) SW provided all of above resources, along with resources for the [employer], cancer financial assistance guide, etc. Patient also was provided with resources for IHSS yesterday. Patient thanked this screen writer, and she denies any further questions/ concerns at this time. Machinery Repair Maintenance Supervisor remains available as needed throughout patient's treatment process. Patient was provided with this writers contact information again and SW encouraged her to call with any further questions/ concerns.
--- NOTE | 2018-10-27 17:50 | NUR ---
DISCHARGE Patient discharge discharged home. cafeteria monitor, peripheral IV, and ID band removed. Discharge packet given to patient and instructions explained. Prescriptions sent to patient preferred pharmacy by Dr. Shirley. Sent with all belongings. Escorted by family and volunteer by wheelchair. Stable vital signs.
--- NOTE | 2018-10-28 17:25 | NUR ---
cm note discharge plan late entry cm confirmed with [facility] that pt will be seen at discharge. [phone] as per yenifer.
== END 2018-10-27 17:50 | disposition home health service (06) | DRG 871 ==
LOC: E/R 15:55 → 6WM 17:53
PROVIDERS: ADMIT Internal Medicine; ATTEND Internal Medicine
DX: A41.9 Sepsis, unspecified organism (principal); J18.9 Pneumonia, unspecified organism; C78.7 Secondary malignant neoplasm of liver and intrahepatic bile duct; C79.51 Secondary malignant neoplasm of bone; N39.0 Urinary tract infection, site not specified; J90 Pleural effusion, not elsewhere classified; C50.912 Malignant neoplasm of unspecified site of left female breast; Z85.3 Personal history of malignant neoplasm of breast; E11.9 Type 2 diabetes mellitus without complications; K59.00 Constipation, unspecified; D64.9 Anemia, unspecified; D69.6 Thrombocytopenia, unspecified
CPT/HCPCS: 36415; 36600; 71045; 74150; 76700; 80048; 80053; 80061; 81001; 82803; 83036; 83605; 83690; 83735; 84100; 84443; 84484; 85025; 85610; 85730; 86140; 86706; 86803; 86850; 86900; 86901; 87040; 87086; 87340; 87400; 93005; 93306; 93970; 94640; 94644; 94664; 96374; J0456; J0696; J1644; J1940; J1956; J7030; J7040; P9047